=== PATIENT | female | born 1935 | race Caucasian/White ===

== ENCOUNTER 2020-12-02 13:20 | Emergency (ER) | payer MEDICARE, MEDICAID ==
[~2020-12-02] VITALS: Ht 170.2 cm; Wt 83.1 kg
[~2020-12-02 13:20] MED LIST: CALC650T22 PO; CHOL2000 PO; CLON-529 PO; FOLI-43 PO; FURO40TA4 PO; INSU100C4 SQ; LANTUS SQ; LISI20TA28 PO; MYCO250C46 PO; NIFE60TA10 PO; NOVLG; ROSU20TA2 PO; SODI650T29 PO; TACR1CAP24 PO; VITA1CAP62 PO
[2020-12-02] MEDS ORDERED: normal saline 1000ML IV soln IVB ONE (13:55)
[2020-12-02 14:05] LABS: BASOPHILS % (AUTO) 0.5 % (0-1); EOSINOPHILS # (AUTO) 0.1 X10'3 (0-0.9); EOSINOPHILS % (AUTO) 1.4 % (0-6); HEMOGLOBIN 11.8 g/dl (12.0-16.0); LYMPHOCYTES # (AUTO) 0.9 X10'3 (1.1-4.8); MEAN CORPUSCULAR HEMOGLOBIN 29.8 PG (27.0-31.0); MEAN CORPUSCULAR HGB CONC 32.7 g/dL (33.0-36.5); MEAN CORPUSCULAR VOLUME 91.3 FL (78-98); MEAN PLATELET VOLUME 10.4 FL (7.4-10.4); MONOCYTES # (AUTO) 1.3 X10'3 (0-0.9); MONOCYTES % (AUTO) 14.7 % (2-12); NEUTROPHILS # (AUTO) 6.4 X10'3 (1.8-7.7); NEUTROPHILS % (AUTO) 73.4 % (42-75); PLATELET COUNT 267 X10'3 (140-440); RED BLOOD COUNT 3.94 X10'6 (4.20-5.60); RED CELL DISTRIBUTION WIDTH 13.6 % (11.5-14.5); WHITE BLOOD COUNT 8.7 X10'3 (4.5-11.0)
--- NOTE | 2020-12-02 14:22 | NUR ---
[facility] IS CALLED FOR INTERRAGATION. OSWALDO CALLS BACK AND STATES PT HAS A MACHINE AT HOME THAT IS GOOD GETTING AN INTERROGATION NOW. IT WAS FINE THIS MORNING AND EVERYTHING LOOKED GOOD. HE WILL FAX OVER HIS REPORT WITHIN 30 MIN.
[2020-12-02 14:27] LABS: ALANINE AMINOTRANSFERASE 21 U/L (12-78); ALBUMIN 2.9 G/DL (3.4-5.0); ALBUMIN/GLOBULIN RATIO 0.7 (1.1-1.5); ALKALINE PHOSPHATASE 61 IU/L (46-116); ANION GAP 10 (8-16); ASPARTATE AMINO TRANSFERASE 21 U/L (10-37); BILIRUBIN,TOTAL 0.2 MG/DL (0.1-1.0); BLOOD UREA NITROGEN 38 MG/DL (7-18); BUN/CREATININE RATIO 24.2 (6.6-38.0); CALCIUM 9.2 MG/DL (8.5-10.1); CHLORIDE 106 MMOL/L (99-107); CREATININE 1.57 MG/DL (0.40-0.90); GLUCOSE 129 MG/DL (70-104); SODIUM 141 MMOL/L (135-145); TOTAL CARBON DIOXIDE 24.9 MMOL/L (24-32); TOTAL PROTEIN 6.8 G/DL (6.4-8.2); eGFR 31 ML/MIN
--- NOTE | 2020-12-02 15:27 | NUR ---
PT GIVEN WATER TO DRINK INSTEAD OF IV FLUIDS. ASSIST PT TO BEDSIDE COMMODE FOR URINE SPECIMEN COLLECTION.
[2020-12-02 15:33] LABS: CLARITY,URINE CLOUDY (Clear); COLOR,URINE YELLOW (Yellow); GLUCOSE, URINE NEGATIVE (Neg); KETONES,URINE NEGATIVE (Neg); LEUKOCYTE ESTERASE ,URINE MODERATE (Neg); NITRITES, URINE NEGATIVE (Neg); OCCULT BLOOD,URINE SMALL (Neg); PH,URINE 6.5 (4.8-8.0); PROTEIN,URINE >=300 mg/dl (Neg); UROBILINOGEN,URINE 0.2 E.U/dL (0.2-1.0)
--- NOTE | 2020-12-02 16:22 | NUR ---
LAB IS CALLED TO FIND OUT WHY THE URINE HAS FINISHED YET. THEY ARE STILL WORKING ON IT AND IT WILL BE DONE SOON.
[2020-12-02 16:23] LABS: UA COLLECTION TYPE CLN CATCH MIDSTREAM
[2020-12-02 16:24] LABS: BACTERIA,URINE 4+ /HPF (Neg); TRANSITIONAL EPI CELLS,URINE FEW /HPF
[2020-12-02 16:25] LABS: SQUAMOUS EPITHELIAL CELL,UR FEW /LPF (FEW)
[2020-12-02 16:26] LABS: WBC CLUMPS,URINE MODERATE /HPF (NEGATIVE)
[2020-12-02 16:27] LABS: RBC,URINE 0-2 /HPF (0-2); WBC,URINE 50-100 /HPF (0-4)
[2020-12-02] MEDS ORDERED: CEPH250T PO (16:28)
[2020-12-02 16:30] VITALS: BP 210/88
[2020-12-02] MEDS ORDERED: cephalexin 250mg capsule PO ONE (16:30)
--- NOTE | 2020-12-02 16:31 | NUR ---
PROVIDER IN ROOM TO DISCUSS D/C WITH PT. WILL GIVE PT FIRST DOSE OF ABX AND RX FOR DC.
--- NOTE | 2020-12-02 16:50 | NUR ---
PT AMB OUT TO LOBBY WITH HER WALKER TO WAIT FOR HER CAREGIVER TO ARRIVE.
== END 2020-12-02 16:52 | disposition home or self-care (01) ==
LOC: ER 13:22
DX: N39.0 Urinary tract infection, site not specified (principal); R42 Dizziness and giddiness; R06.02 Shortness of breath; I48.91 Unspecified atrial fibrillation; I50.9 Heart failure, unspecified; I11.0 Hypertensive heart disease with heart failure; K21.9 Gastro-esophageal reflux disease without esophagitis; E11.42 Type 2 diabetes mellitus with diabetic polyneuropathy; G89.29 Other chronic pain; Z90.89 Acquired absence of other organs; Z90.710 Acquired absence of both cervix and uterus; Z95.0 Presence of cardiac pacemaker; Z98.890 Other specified postprocedural states; Z88.0 Allergy status to penicillin; Z88.1 Allergy status to other antibiotic agents; Z79.2 Long term (current) use of antibiotics; Z79.4 Long term (current) use of insulin; Z79.899 Other long term (current) drug therapy
CPT/HCPCS: 36415; 71045; 80053; 81001; 83880; 84484; 85025; 87077; 87088; 87186; 93005; 99285

== ENCOUNTER 2022-03-10 04:19 | Emergency (ER) | payer MEDICARE, MEDICAID ==
[~2022-03-10] VITALS: Ht 170.2 cm; Wt 72.0 kg
[2022-03-10 04:49] LABS: BASOPHILS # (AUTO) 0.1 X10'3 (0-0.2); BASOPHILS % (AUTO) 0.8 % (0-1); EOSINOPHILS # (AUTO) 0.1 X10'3 (0-0.9); EOSINOPHILS % (AUTO) 0.9 % (0-6); HEMATOCRIT 28.2 % (35.0-45.0); HEMOGLOBIN 9.2 g/dl (12.0-16.0); LYMPHOCYTES % (AUTO) 12.5 % (21-51); MEAN CORPUSCULAR HEMOGLOBIN 29.5 PG (27.0-31.0); MEAN CORPUSCULAR HGB CONC 32.6 g/dL (33.0-36.5); MEAN CORPUSCULAR VOLUME 90.5 FL (78-98); MEAN PLATELET VOLUME 9.7 FL (7.4-10.4); MONOCYTES # (AUTO) 1.1 X10'3 (0-0.9); MONOCYTES % (AUTO) 13.4 % (2-12); NEUTROPHILS # (AUTO) 5.9 X10'3 (1.8-7.7); NEUTROPHILS % (AUTO) 72.4 % (42-75); PLATELET COUNT 276 X10'3 (140-440); RED BLOOD COUNT 3.12 X10'6 (4.20-5.60); RED CELL DISTRIBUTION WIDTH 13.1 % (11.5-14.5); WHITE BLOOD COUNT 8.1 X10'3 (4.5-11.0)
[2022-03-10 05:00] LABS: ALANINE AMINOTRANSFERASE 15 U/L (12-78); ALBUMIN 3.1 G/DL (3.4-5.0); ALBUMIN/GLOBULIN RATIO 0.9 (1.1-1.5); ALKALINE PHOSPHATASE 31 IU/L (46-116); ANION GAP 14 (8-16); ASPARTATE AMINO TRANSFERASE 18 U/L (10-37); BILIRUBIN,TOTAL 0.4 MG/DL (0.1-1.0); BLOOD UREA NITROGEN 62 MG/DL (7-18); BUN/CREATININE RATIO 29.8 (6.6-38.0); CALCIUM 9.1 MG/DL (8.5-10.1); CHLORIDE 103 MMOL/L (99-107); CREATININE 2.08 MG/DL (0.40-0.90); GLUCOSE 129 MG/DL (70-104); POTASSIUM 4.5 MMOL/L (3.5-5.1); SODIUM 139 MMOL/L (135-145); TOTAL CARBON DIOXIDE 21.6 MMOL/L (24-32); TOTAL PROTEIN 6.7 G/DL (6.4-8.2); eGFR 23 ML/MIN
[2022-03-10 05:08] LABS: MAGNESIUM 1.9 MG/DL (1.5-2.4)
--- NOTE | 2022-03-10 05:53 | NUR ---
CALLED [employer] AND THEY WILL BE PAGING A REP TO COME CHECK PT'S PACEMAKER. # IS
[2022-03-10] MEDS ORDERED: normal saline 1000ML IV soln IVB ONE (06:10)
--- NOTE | 2022-03-10 07:47 | NUR ---
called [employer] and as per them they will call us for the eta .
--- NOTE | 2022-03-10 08:45 | NUR ---
called [employer] and spoke to cailin gaines in [facility] [place] per her she will resend the page for interrogation request .notified dr barrientos at this time about the situation.
--- NOTE | 2022-03-10 09:02 | NUR ---
TC FROM [employer] AND INFORMED THAT PACEMAKER READINGS ARE GENERATED DAILY. REP STATES THAT HE WILL FAX PACEMAKER REPORT FROM LAST 24 HOURS AND STATES THAT THERE IS NOTHNG SIGNIFICANT NOTED IN THE REPORT. AWAITING FAX REPORT.
--- NOTE | 2022-03-10 12:38 | NUR ---
CALLLED SON GAUTAM AND INFORMED THAT PT IS READY TO BE PICKED UP , PER GAUTAM HE WILL CALL HER HELPER TO COME GET HER.MULTIPLE ATTEMPT MADE TO CALL THE PT HELPER {BETINA},LEFT VOICE MSG.
[2022-03-10 14:40] VITALS: BP 170/81
== END 2022-03-10 14:43 | disposition home or self-care (01) ==
LOC: ER 04:19
DX: R00.2 Palpitations (principal); R42 Dizziness and giddiness; R79.89 Other specified abnormal findings of blood chemistry; I48.91 Unspecified atrial fibrillation; I11.0 Hypertensive heart disease with heart failure; I50.9 Heart failure, unspecified; E11.42 Type 2 diabetes mellitus with diabetic polyneuropathy; E78.00 Pure hypercholesterolemia, unspecified; K21.9 Gastro-esophageal reflux disease without esophagitis; G89.29 Other chronic pain; Z90.89 Acquired absence of other organs; Z90.710 Acquired absence of both cervix and uterus; Z95.0 Presence of cardiac pacemaker; Z98.890 Other specified postprocedural states; Z88.0 Allergy status to penicillin; Z88.1 Allergy status to other antibiotic agents; Z79.4 Long term (current) use of insulin; Z79.899 Other long term (current) drug therapy
CPT/HCPCS: 36415; 71045; 80053; 83735; 83880; 84484; 85025; 93005; 99285; J7030